=== PATIENT | male | born 1995 | race Caucasian/White ===

== ENCOUNTER 2018-12-30 17:37 | Emergency (ER) | payer OTHER ==
--- NOTE | 2018-12-30 17:43 | PDOC ---
Rapid Medical Evaluation Time Seen by Provider: 12/30/18 17:40 Medical Evaluation: 12/30/18 17:40 I performed a brief in-person evaluation of this patient. Chief complaint: Dental pain, awaiting dental appt 01/11 and was told to come for abx Pertinent physical exam findings: Mild swelling right side of face, no trismus I have ordered the following: None Patient will proceed to ED for further evaluation. Discharge Disposition - Diagnosis Pain, dental - Referrals - Patient Instructions - Post Discharge Activity
[2018-12-30 17:50] VITALS: BP 153/90; PULSE 77; TEMP 98.5; BMI 32.9
--- NOTE | 2018-12-30 18:01 | PDOC ---
History of Present Illness - General Chief Complaint: Toothache Stated Complaint: NEEDS MEDICATION Time Seen by Provider: 12/30/18 17:40 History Source: Patient Exam Limitations: No Limitations - History of Present Illness Initial Comments: 12/30/18 17:50 Here with complaints of toothache pain. [facility] has an appointment on January 11 Timing/Duration: unsure, 24 hours Past History - Travel Traveled outside of the country in the last 30 days: No Close contact w/someone who was outside of country & ill: No - Past Medical History Allergies/Adverse Reactions: Allergies Allergy/AdvReac Type Severity Reaction Status Date / Time No Known Allergies Allergy Verified 12/30/18 17:40 Home Medications: Ambulatory Orders Clindamycin [Cleocin -] 300 mg PO TID #21 capsule 12/30/18 COPD: No - Immunization History Immunization Up to Date: Yes - Suicide/Smoking/Psychosocial Hx Smoking History: Never smoked Hx Alcohol Use: No Drug/Substance Use Hx: No Review of Systems - Review of Systems Able to Perform ROS?: Yes Is the patient limited Belgian proficient: Yes Constitutional: Yes: Symptoms Reported, See HPI, Malaise. No: Fever HEENTM: Yes: Symptoms Reported, See HPI, Mouth Pain, Mouth Swelling (with overgrowth of gums/ gingival surface of upper and lower aspects ) Respiratory: No: See HPI Cardiac (ROS): No: Symptoms Reported All Other Systems: Reviewed and Negative *Physical Exam - Vital Signs Last Vital Signs Temp Pulse Resp BP Pulse Ox 98.5 F 77 17 153/90 98 12/30/18 17:41 12/30/18 17:41 12/30/18 17:41 12/30/18 17:41 12/30/18 17:41 - Physical Exam General Appearance: Yes: Nourished, Appropriately Dressed HEENT: positive: MARIA TERESA, TMs Normal, Nasal Congestion, Rhinorrhea, Other (gross beefy-red and overgrown gingival surface to both upper and lower dental line with bowel halitosis. No purulent drainage noted but states is quite painful. No ulceration or other lesions noted.). negative: Pharynx Normal Neck: positive: Supple. negative: Tender, Lymphadenopathy (R), Lymphadenopathy (L) Respiratory/Chest: positive: Lungs Clear, Normal Breath Sounds Integumentary: positive: Normal Color, Pale Neurologic: positive: dental mold maker II-XII NML intact, Fully Oriented, Alert, Normal Mood/ Affect, Normal Response, Motor Strength 5/5 *DC/Admit/Observation/Transfer Diagnosis at time of Disposition: Gingival hyperplasia - Discharge Dispostion Disposition: HOME Condition at time of disposition: Stable Decision to Admit order: No - Referrals - Patient Instructions Printed Discharge Instructions: DI for Dental Pain Additional Instructions: keep mouth clean- rinse freequerntly and use mouthwash/ listerine for antibacterial purpose and breath freshening Rest, drink lots of fluids: Teas, water, soups Saltwater gargles/ keep mouth clean and rinse after each meal May use wet teabag for pain relief to area Avoid hard chewing foods, stick to ice cream, Jell-O, yogurt etc. Tylenol or Motrin for fever and pain Complete all medication as prescribed Seek dental appointment as soon as possible for evaluation of dental injury/pain Followup with private physician in one to 2 days as needed Return to emergency department for worsened symptoms, fevers, swelling to face or worsened pain - Post Discharge Activity Forms/Work/School Notes: Back to Work
== END 2018-12-30 18:16 | disposition home or self-care (01) ==
LOC: JERFT 17:37
DX: K06.1 Gingival enlargement (principal)
CPT/HCPCS: 99281-25